=== PATIENT | female | born 1965 | race Hispanic/Latino ===

== ENCOUNTER 2020-03-30 15:12 | Inpatient (IN) | payer OTHER, SELFPAY ==
--- NOTE | 2020-03-30 15:42 | RAD ---
Exam:Left forearm 2 views HISTORY: Trauma. Fall. Pain. COMPARISON: None FINDINGS: Ulnar styloid fracture. Displaced and posteriorly angulated distal radius fracture with com minution and intra-articular extension. IMPRESSION: Distal radius and ulna fracture with deformity
--- NOTE | 2020-03-30 15:54 | CT ---
Exam: Head CT without contrast HISTORY: Level 2 trauma. Patient fell down 9 feet of stairs face first. Loss of consciousness. Memory loss. Nausea and vomiting. Right facial contusion. COMPARISON: none FINDINGS: Hemorrhage: No intraparenchymal hemorrhage or extra-axial hematoma. Brain parenchyma: Cortical mckeon-white matter differentiation is preserved. No mass effect or midline shift. Basilar cisterns are patent. Ventricular system: Ventricles and sulci are patent and symmetric. Calvarium: Intact. Sinuses and mastoid air cells: Opacification the right maxillary sinus with possible hemorrhage fluid level due to a right orbital floor fracture. Dedicated facial bone CT is recommended. There is a small amount of subcutaneous emphysema anterior to the right maxillary sinus. IMPRESSION: 1. No intracranial post traumatic sequelae 2. Probable right orbital floor fracture. Dedicated facial bone CT is recommended. Results study discussed with Danay Erazo 03/30/2020 3:51 PM Code CR
[2020-03-30 15:57] LABS: Hemoglobin 13.2 g/dL (12.0-16.0); Mean Corpuscular HGB CONC 31.3 g/dL (32.0-36.0); Mean Corpuscular Hemoglobin 28.3 pg (27.0-31.0); Mean Corpuscular Volume 90.3 fL (78.0-98.0); Mean Platelet Volume 6.6 fL (7.4-10.4); Platelet Count 322 thou/uL (130-400); RBC Distribution Width 12.4 % (11.5-14.5); Red Blood Cell (RBC) Count 4.68 mill/uL (4.20-5.40); White Blood Cell (WBC) Count 19.1 thou/uL (4.8-10.8)
[2020-03-30] MEDS ORDERED: Adacel (T-DAP) 0.5 ML SYRINGE ONE (16:01)
--- NOTE | 2020-03-30 16:04 | CT ---
Exam: CT cervical spine without contrast HISTORY: Trauma. Pain. COMPARISON: None FINDINGS: No craniocervical dissociation. Appropriate alignment of the lateral masses of C1 and C2. Intact odon toid process Appropriate alignment of the facets. Straightening of cervical lordosis may be due to patient position, muscle spasm or cervical collar. C urrent study does not assess for ligamentous injury. Soft tissue neck structures: No mass, lymphadenopathy or hematoma. No prevertebral soft tissue swelli ng. Upper mediastinum and lung apices: Unremarkable Central spinal canal: Neural foramina and central spinal canal are patent. Evaluation is limited by t echnique Vertebral bodies: Cervical spine vertebral body heights are maintained. There is no cervical spine ve rtebral body fracture. However, there is a fracture involving the right transverse process at C7. IMPRESSION: 1. No cervical spine vertebral body fracture. 2. Right C7 transverse process fracture.
--- NOTE | 2020-03-30 16:08 | CT ---
Exam: Maxillofacial CT without contrast HISTORY: Patient fell from a height of 9 feet. Loss of consciousness. Evaluate for fracture COMPARISON: None FINDINGS: Visualized brain parenchyma does not demonstrate posttraumatic change Bilateral ocular lenses are appropriately located. Both globes are intact. Retrobulbar fat is preserv ed. Symmetric attenuation the optic nerves and ocular rectus muscles Right lamina papyracea fracture with partial opacification of the right ethmoid air cells. There is a right orbital floor fracture. There is herniation of intraorbital fat through the defect. No obvious ocular rectus muscle herniation. Correlate clinically for entrapment. There is right periorbi tim hematoma. Hematoma extends anterior to the right maxillary sinus. Small focus of subcutaneous air is noted, anterior to the right maxillary sinus. Post traumatic opacification of the right maxill oliva sinus. No additional maxillofacial fractures. No nasal bone fractures Zygomatic arches are intact. Visualized aerodigestive tract is patent. No mucosal abnormality. Midline fatty raphae of the tongue is preserved IMPRESSION: 1. Right orbital floor fracture with herniation of intraorbital fat through the defect. Correlate for entrapment. 2. Right lamina papyracea fracture. 2. Post traumatic opacification of the right ethmoid air cells and right maxillary sinus. Results of the face CT and cervical spine CT relayed to Dr. Cortez 03/30/2020 4:06 PM Code CR Transcribed Date/Time: 03/30/2020 4:41 PM
[2020-03-30 16:11] LABS: Band 18 % (5-11); Lymphocytes 12 % (21-51); MDiff Complete? YES; Monocytes 5 % (0-10); Neutrophil 64 % (42-75); Platelet Morphology Comment Appears Adequate; RBC Morphology Normal
[2020-03-30 16:16] LABS: ALT (SGPT) 977 U/L (8-55); AST (SGOT) 1187 U/L (5-34); Albumin 3.9 g/dL (3.5-5.0); Alkaline Phosphatase 137 U/L (40-110); Anion Gap 20 mmol/L (10-20); BUN (Urea Nitrogen) 13 mg/dL (9.8-20.1); Bilirubin, Total 0.5 mg/dL (0.2-1.2); Calc. Creatinine Clearance 0 mL/min (70-130); Calcium 8.4 mg/dL (7.8-10.44); Carbon Dioxide 18 mmol/L (22-29); Chloride 105 mmol/L (98-107); Estimated GFR-MDRD 70; Glucose 111 mg/dL (70-105); Lipase 21 U/L (8-78); Potassium 3.5 mmol/L (3.5-5.1); Protein, Total 6.9 g/dL (6.0-8.3); Sodium 139 mmol/L (136-145)
--- NOTE | 2020-03-30 16:33 | CT ---
CT THORAX WITH CONTRAST CT ABDOMEN WITH CONTRAST CT PELVIS WITH CONTRAST CT THORACIC SPINE WITH CONTRAST CT LUMBAR SPINE WITH CONTRAST: (Trauma protocol) DATE: 03/30/2020 HISTORY: Trauma to the chest, abdomen, and pelvis in 54-year-old female Dr. Greco discussed the findings and recommendation by telephone with ER physician Dr. Steen at 4:14 P M 03/30/2020. TECHNIQUE: IV administration of iodinated contrast media. No oral contrast media. Single phase scans of thorax, abdomen, and pelvis. Sagittal reconstructions of thoracic and lumbar spine. FINDINGS: Lungs: No contusion. Pleura: No pneumothorax or hemothorax. Thoracic aorta: No dissection or rupture. Mediastinum: No hematoma. Abdomen and pelvis: Liver: Large, approximately 11 x 11 x 9.5 cm region of heterogeneously slightly low attenuation in th e upper portions of the right lobe of liver, mostly hepatic segments 7 and 8, with very irregular margins. Intrahepatic blood vessels, including portal vein branches, pass through this lesion, which would be unusual for neoplastic tumor. This could be a grade 4 liver laceration, but the absence of any other signs of injury elsewhere for such a large lesion, makes this slightly less likely. Gallbladder: Small calcified gallstone. Spleen: No laceration Pancreas: No surrounding fluid or fat stranding. Kidneys: No hydronephrosis or laceration. Bladder: No gross evidence of rupture. Abdominal aorta: No dissection or rupture. Small bowel: No dilation. Colon: No adjacent fat stranding. Free air: None. Free fluid: None. Skeleton: Ribs: No grossly displaced acute fracture. Sternum: No grossly displaced acute fracture. Thoracic spine: No acute compression fracture. Lumbar spine: No acute compression fracture. Pelvis: No grossly displaced acute fracture. No dislocation. IMPRESSION: 1. Large 11 x 11 x 9.5 cm low-attenuation lesion occupying large upper portion of right lobe of liver . Exact etiology uncertain. Possibilities include heterogeneous fatty infiltration of liver, or grade 4 liver laceration. The former is favored. Infiltrative neoplasm is less likely. Recommend foll ow-up with serum LFTs; and multi phase CT abdomen with and without contrast, liver mass protocol, on an elective basis a few days from now. 2. No other evidence of acute traumatic injury within the thorax, abdomen, or pelvis.
[2020-03-30] MEDS ORDERED: Ondansetron PF 4 MG/2 ML Vial ONE (16:35)
[2020-03-30 17:07] LABS: INR-International Normal Ratio 1.1; PTT 27.5 sec (22.9-36.1); Prothrombin Time 13.7 sec (12.0-14.7)
[2020-03-30] MEDS ORDERED: Fentanyl 100 MCG/2 ML VIAL ONE ×2 (17:23→18:29)
[2020-03-30] MEDS ORDERED: Dextrose 5% in Water 1,000 ML IV PRN (17:34)
[2020-03-30] MEDS ORDERED: Dextrose 50% Abboject 50 ML SYRINGE SLOW IVP PRN (17:34)
[2020-03-30] MEDS ORDERED: Ondansetron PF 4 MG/2 ML Vial IVP PRN (17:34)
[2020-03-30] MEDS ORDERED: hydrALAZINE 20 MG/ML VIAL SLOW IVP PRN (17:34)
[2020-03-30] MEDS ORDERED: traMADol HCl 50 MG TAB PO PRN (17:38)
[2020-03-30] MEDS ORDERED: Sodium Chloride 0.9% 1,000 ML IV SCH (17:45)
[2020-03-30 17:51] LABS: Acetaminophen Less than 6.0 mcg/mL (10.0-30.0); Alcohol Less than 10 mg/dL (Less than 10); Salicylate Less than 8.0 mg/dL (15.0-30.0)
[2020-03-30] MEDS ORDERED: Bupivacaine 0.5% 10 ML VIAL ONE (18:00)
[2020-03-30 18:22] LABS: Bacteria/HPF None Seen HPF (None Seen); Bilirubin Negative (Negative); Blood, Urine 1+ (Negative); Clarity Clear (Clear); Glucose, Urine (Dipstick) Normal (Negative); Leukocyte Negative Leu/uL (Negative); Nitrite Negative (Negative); Protein, Urine (Dipstick) 10 mg/dL (Neg-Trace); Squamous Epithelial 0-3 HPF (0-3); Urobilinogen Normal mg/dL (Less than 2)
[2020-03-30] MEDS ORDERED: Lidocaine 1% (PF) 30 ML VIAL ONE (18:26)
[2020-03-30 18:31] LABS: Amphetamine Not Detected (NotDetected); Barbiturates Screen Not Detected (NotDetected); Benzodiazepine Screen Not Detected (NotDetected); Cocaine Metabolite Screen Not Detected (NotDetected); Medtox Control Line Valid? VALID (VALID); Medtox Reader # READER 4; Methadone Not Detected (NotDetected); Methamphetamine Not Detected (NotDetected); Opiate Screen Not Detected (NotDetected); Oxycodone Screen Not Detected (NotDetected); Phencyclidine (PCP) Not Detected (NotDetected); THC/Cannabinoid Screen Not Detected (NotDetected); Tricyclic Screen Not Detected (NotDetected)
--- NOTE | 2020-03-30 19:12 | RAD ---
Radiograph left forearm 2 views: DATE: 03/30/2020 Time: 6:30 PM HISTORY: Status post reduction of distal radial fracture in 54-year-old female COMPARISON: 03/30/2020 2:57 PM FINDINGS: The comminuted fracture of the distal radial metaphysis and epiphysis, is still significantly displac ed. The major distal fragments appear to be slightly less displaced on the current lateral view, but that lateral view is obliqued, in a different direction from the previous one, and therefore true comparison is difficult. Again noted is the displaced fracture at base of ulnar styloid process. On the AP view, the radial side distal major fragments appear to be more displaced than before. Forea rm has been placed in splint. IMPRESSION: There continues to be significant displacement of comminuted, displaced, intra-articular distal radia l metaphyseal and epiphyseal fracture, after placement in splint.
--- NOTE | 2020-03-30 19:32 | HP ---
TRAUMA SURGEON: Dr. Arechiga. CONSULTING PHYSICIANS: 1. Dr. Roldan of [facility] [place]. 2. Dr. Kelley of Orthopedic Surgery. HISTORY OF PRESENT ILLNESS: The patient is a 54-year-old female, fell down a flight of steps. The patient reported hearing the fall and she was not responsive when they saw her. She was brought in by EMS and evaluated by the emergency room physician. The patient does not remember the fall. She complained of pain to her left wrist, her great toe on the right, and the side of her head on the right side. Gross motor and sensation are intact in all extremities. She denies bilateral upper and lower extremity tingling. GCS is 15. She denies feeling sick recently. REVIEW OF SYSTEMS: All additional 10-point review of systems negative except as indicated above. PAST MEDICAL HISTORY: Migraines, anxiety and depression. PAST SURGICAL HISTORY: Bunionectomy, appendectomy, and tubal ligation. SOCIAL HISTORY: The patient lives at home with her family. She denies tobacco, drug, or alcohol use. MEDICATIONS: 1. Sumatriptan. 2. Escitalopram. 3. Amitriptyline. 4. Hydroxyzine. 5. Cyclobenzaprine. 6. Prednisone, which the patient is no longer taking. 7. Naproxen. ALLERGIES: NO KNOWN DRUG ALLERGIES. PHYSICAL EXAMINATION: VITAL SIGNS: Temperature 99.0, pulse 76, respirations 18, oxygen saturation 94% on room air, blood pressure 104/63. PRIMARY SURVEY: Airway intact. Adequate breath sounds bilaterally. 2+ pulses in bilateral radials, femorals, and DPs. GCS 15. Gross motor and sensation are intact. SECONDARY SURVEY: HEAD: Normocephalic and atraumatic. No gross palpable skull deformities. ENT: The patient has abrasion with some swelling over the right eye. Pupils 3 to 2, equal, round, reactive to light bilaterally. No signs of entrapment. No blood in the bilateral nares. Dentition is intact. No blood in the oropharynx. No anterior neck crepitus/tenderness/injury. C-SPINE: No step-offs or deformities. Nontender. C-collar in place. CHEST: Nontender. No crepitus. No abrasions or ecchymosis. Equal chest movement. ABDOMEN: Soft, nontender, nondistended. PELVIS: Stable to palpation, nontender. No abrasions or ecchymosis. RECTAL: Deferred. GENITOURINARY: Deferred. EXTREMITIES: The patient has deformity of the left wrist. No abrasions or ecchymosis noted. 2+ pulses in bilateral radials, femorals, and DPs. BACK/SPINE: No step-offs, deformities, or tenderness to palpation of the thoracic or lumbar spine. No abrasions or ecchymosis noted. NEUROLOGIC: 5/5 strength in bilateral java project manager, plantar flexion, and dorsiflexion. Gross normal sensation x4 extremities. LABORATORY FINDINGS: White count 19.1, hemoglobin 13.2, hematocrit 42.3, platelets 322. INR 1.1. Sodium 143, potassium 3.7, chloride 105, bicarb 18, BUN 13, creatinine 0.85, glucose 111, lactic acid 6.0, total bilirubin 0.6, AST 1187, ALT 977, alkaline phosphatase 137, lipase 21, albumin 3.5. UA is negative for infection. Urine tox and plasma alcohol levels are all unremarkable. DIAGNOSTIC FINDINGS: CT scan of the brain demonstrates no intracranial posttraumatic sequela, probably right orbital floor fracture. Dedicated facial CT is recommended. CT scan of the C-spine demonstrates no cervical spine vertebral body fracture. Right C7 transverse process fracture. CT scan of the chest, abdomen, and pelvis demonstrates large 11 x 11 x 9.5 cm low-attenuation lesion occupying a large portion of the upper lobe of the liver, exact etiology uncertain, possibilities include heterogeneous fatty infiltrate of liver or grade 4 liver laceration. The former is favored. Infiltrative neoplasm is less likely. Recommended followup with serum LFTs and multiple-phase CT abdomen with and without contrast, liver mass protocol on an elective basis a few days from now. No evidence of acute traumatic injury in the thorax, abdomen, and pelvis. CT of the facial bones demonstrates right orbital floor fracture with herniation of intraorbital fat through the defect, correlate with entrapment, right lamina papyracea fracture, posttraumatic opacification of the right ethmoid air cells with the right maxillary sinus. ASSESSMENT: 1. Status post fall down staircase. 2. Left distal radius and ulnar fracture. 3. Right orbital floor fracture and lamina papyracea fracture. 4. C7 transverse process fracture. 5. Liver lesion, favoring fatty infiltrate, but possibly could be liver laceration. 6. History of anxiety, depression, and migraines. PLAN: The patient will be admitted to the Trauma Service. She will go to the regular surgical nursing floor. She will have a regular diet and be n.p.o. at midnight. The patient's lactic acid was elevated. She has received 1 L in the emergency department. However, we will give the patient another liter over the next 4 hours. She will be n.p.o. at midnight to go to the OR with Dr. Kelley for fixation of her left distal radius and ulnar fracture. Dr. Roldan of [facility] [place] has been consulted, who will evaluate the patient tomorrow and is not planning on surgery at this time. The patient can wear the collar for comfort. We will try to clear it tomorrow. Liver lesion was evaluated by Dr. Arechiga, who also called Radiology. They reported it is less likely to be a liver laceration. We will closely monitor her hemodynamics and repeat liver enzymes tomorrow. Today, we will complete troponin, EKG, magnesium, lactic acid, followup alcohol level, ammonia level, phosphorus level, and follow up those results. She will be n.p.o. at midnight for the OR tomorrow. This patient was discussed with Dr. Arechiga before this dictation. Job ID: [id number]
[2020-03-30 20:07] LABS: Magnesium 2.1 mg/dL (1.6-2.6); Phosphorus 3.4 mg/dL (2.3-4.7)
[2020-03-30 20:09] LABS: Lactic Acid 5.4 mmol/L (0.5-2.2)
[2020-03-30 22:33] VITALS: BMI 35.4
[2020-03-30] MEDS: traMADol HCl 50 MG TAB PO PRN (22:54)
[2020-03-30] MEDS: Gabapentin 100 MG CAP PO SCH (22:54)
[2020-03-30] MEDS: Senokot S 8.6-50 MG TAB PO SCH (23:05)
[2020-03-30] MEDS: Famotidine/PF 20 mg/2ml Vial SLOW IVP SCH (23:05)
[2020-03-31 01:13] LABS: HBSAg Index 0.23 S/CO (0-0.99); Hep A IgM AB Non-Reactive (NonReactive); Hep A IgM S/CO 0.19 S/CO (0-0.79); Hep B Surf Ag Non-Reactive S/CO (NonReactive); Hep C IgG Ab Non-Reactive (NonReactive); Hep C Index 0.15 S/CO (0-0.79)
[2020-03-31 01:14] LABS: HBCM Index 0.06 S/CO (0-0.79); Hepatitis B Core IgM Abs Non-Reactive (NonReactive)
--- NOTE | 2020-03-31 01:44 | PRG ---
DATE OF SERVICE: 03/30/2020 SUBJECTIVE: Ms. Motley remained in the surgical floor. Patient was seen on round this evening. Patient reports pain is controlled. She tolerated with her diet. Her urine is adequate. She developed no fever or shortness of breath. She reports no abdominal pain. OBJECTIVE: GENERAL: Currently, patient is lying in bed comfortable with no acute respiratory distress. VITAL SIGNS: Stable. LUNGS: Clear bilaterally. HEART: Regular rate and rhythm. ABDOMEN: Soft and nondistended. EXTREMITY: Neurovascularly intact x4. ASSESSMENT: 1. Status post mechanical fall. 2. Left distal radius and ulnar fracture. 3. Right orbital floor fracture and lamina papyracea fracture. 4. C7 transverse process fracture. 5. Liver lesion, most likely chronic. 6. History of anxiety and depression and migraine. PLAN: Continue supportive care. Continue pain control. Wear C-collar at all time. Patient will be admitted. No n.p.o. at midnight. Dr. Kellye will take the patient to the OR for left wrist fracture fixation tomorrow. Dr. Roldan will see patient tomorrow, and discussed treatment plan for facial fracture. Continue to follow up on liver lesion at the moment. Job ID: [id number] MTDD
[2020-03-31] MEDS: Morphine 2 MG/ML SYRINGE SLOW IVP PRN ×3 (02:43→18:01)
[2020-03-31 05:42] LABS: INR-International Normal Ratio 1.1; Prothrombin Time 13.9 sec (12.0-14.7)
[2020-03-31 05:59] LABS: Band 1 % (5-11); Eosinophils 1 % (0-10); Hemoglobin 11.1 g/dL (12.0-16.0); Lymphocytes 25 % (21-51); MDiff Complete? YES; Mean Corpuscular HGB CONC 32.2 g/dL (32.0-36.0); Mean Corpuscular Hemoglobin 29.1 pg (27.0-31.0); Mean Corpuscular Volume 90.6 fL (78.0-98.0); Mean Platelet Volume 6.7 fL (7.4-10.4); Monocytes 3 % (0-10); Neutrophil 70 % (42-75); Platelet Count 302 thou/uL (130-400); Platelet Morphology Comment Appears Adequate; RBC Distribution Width 12.5 % (11.5-14.5); RBC Morphology Normal; Red Blood Cell (RBC) Count 3.81 mill/uL (4.20-5.40); White Blood Cell (WBC) Count 10.5 thou/uL (4.8-10.8)
[2020-03-31 06:03] LABS: ALT (SGPT) 968 U/L (8-55); AST (SGOT) 1078 U/L (5-34); Albumin 3.4 g/dL (3.5-5.0); Alkaline Phosphatase 124 U/L (40-110); Anion Gap 12 mmol/L (10-20); BUN (Urea Nitrogen) 11 mg/dL (9.8-20.1); Bilirubin, Total 0.5 mg/dL (0.2-1.2); Calc. Creatinine Clearance 131 mL/min (70-130); Calcium 7.7 mg/dL (7.8-10.44); Carbon Dioxide 21 mmol/L (22-29); Chloride 108 mmol/L (98-107); Estimated GFR-MDRD 89; Globulin 2.6 g/dL (2.4-3.5); Glucose 113 mg/dL (70-105); Magnesium 1.9 mg/dL (1.6-2.6); Phosphorus 3.2 mg/dL (2.3-4.7); Potassium 3.8 mmol/L (3.5-5.1); Sodium 137 mmol/L (136-145)
[2020-03-31] MEDS ORDERED: Sodium Chloride 0.9% 1,000 ML IV SCH ×2 (06:45→07:37)
[2020-03-31] MEDS ORDERED: Magnesium 2 GM/50 ML 2 GM in Premix Bag 1 BAG IVPB SCH (07:45)
[2020-03-31] MEDS ORDERED: Potassium Phosphate 15 MMOL in Sodium Chloride 0.9% 250 ML 250 ML IVPB SCH (07:45)
[2020-03-31 08:02] LABS: Lactic Acid 2.3 mmol/L (0.5-2.2)
[2020-03-31 08:25] LABS: Troponin I 0.021 ng/mL (< 0.028)
[2020-03-31] MEDS: Famotidine/PF 20 mg/2ml Vial SLOW IVP SCH ×2 (08:31→20:12)
[2020-03-31] MEDS: Gabapentin 100 MG CAP PO SCH ×3 (08:31→20:12)
[2020-03-31] MEDS: Polyethylene Glycol 3350 17 GM Packet PO SCH (08:31)
[2020-03-31] MEDS: Senokot S 8.6-50 MG TAB PO SCH ×2 (08:32→20:12)
[2020-03-31] MEDS ORDERED: Escitalopram Oxalate 10 mg Tablet PO SCH (09:00)
[2020-03-31] MEDS ORDERED: Midazolam HCl 2 mg/2 ml Vial ONE (10:51)
[2020-03-31] MEDS ORDERED: PROPOFOL 200 MG/20 ML VIAL ONE (11:01)
[2020-03-31] MEDS ORDERED: Bupivacaine HCl 0.5%/Epinephrine 1:200,000/PF 30 ml Vial ONE ×2 (11:01→12:12)
[2020-03-31] MEDS ORDERED: Ketorolac Tromethamine 30 MG/ML VIAL ONE (11:01)
[2020-03-31] MEDS ORDERED: Propofol 500 MG/50 ML VIAL ONE (11:40)
--- NOTE | 2020-03-31 11:55 | PRG ---
DATE OF SERVICE: 03/31/2020 SUBJECTIVE: The patient was seen this morning during rounds. She was sitting up in bed with no signs of acute distress. She reported some mild lower back pain and left wrist pain. She has received fluid resuscitation overnight and her lactic acid is downtrending. She is pending the OR today with Dr. Kelley for fixation of her left radius and ulnar fracture. Dr. Roldan is also to evaluate her facial fracture. OBJECTIVE: VITAL SIGNS: Temperature 99.1, pulse 101, respirations 16, oxygen saturation 96% on room air, and blood pressure 96/65. GENERAL: Well-appearing middle-aged female, sitting up in bed with no signs of acute distress. PULMONARY: Equal chest rise and fall. Clear breath sounds bilaterally. No signs of acute respiratory distress. CARDIAC: Regular rate and rhythm. No murmurs, gallops, or rubs. GI: Abdomen is soft, nontender, nondistended. EXTREMITIES: 2+ pulses in all extremities. Gross motor and sensation are intact. She has a splint to her left upper extremity that is appropriate. NEUROLOGIC: GCS 15. C-collar in place and fitting appropriately. LABORATORY FINDINGS: White count 10.5, hemoglobin 11.1, hematocrit 34.5, and platelets 302. Sodium 137, potassium 3.8, chloride 108, bicarbonate 21, BUN 11, creatinine 0.69, glucose 113, lactic acid 2.3, phosphorus 3.2, magnesium 1.9, total bilirubin 0.5, AST 1078, ALT 968, alkaline phosphatase 124, and troponin 0.021. DIAGNOSTIC FINDINGS: There are no new diagnostic findings to report. ASSESSMENT: 1. Status post fall down a flight of stairs. 2. Concussion, resolving. 3. Right C7 transverse process fracture. 4. Right orbital floor fracture. 5. Left radius and ulnar fracture. 6. Fatty liver lesion, likely chronic. 7. History of anxiety and depression. PLAN: Continue n.p.o. Continue normal saline at 120 an hour. The patient to go to the OR with Dr. Kelley today, pending recommendations from Dr. Roldan about facial fractures. Postoperatively, we will assess her cervical spine in attempt to clear the collar. If we are able to clear the collar, she can have it p.r.n. If we are not able to clear the collar, I have already spoken with Dr. Schwarz's physician senior assistant manager who agreed to have her follow up in clinic if she has persistent C-spine tenderness. Postoperatively, the patient will work with Physical and Occupational Therapy, and she will likely be able to go home and not requiring any inpatient therapy. Job ID: [id number]
--- NOTE | 2020-03-31 13:26 | CON ---
DATE OF CONSULTATION: 03/31/2020 HISTORY OF PRESENT ILLNESS: Ms. Motley is a 54-year-old right-handed female who fell down some steps and had immediate pain and deformity in the left wrist, right great toe, and the right side of her head. The patient was brought to the emergency room. X-rays of the left wrist shows comminuted intra-articular fracture of the left distal radius with displacement and fracture of the ulnar styloid. There is a right orbital floor fracture and C7 transverse process fracture. There was a possible liver laceration. PAST MEDICAL HISTORY/MEDICAL ILLNESSES: 1. History of migraines. 2. Anxiety. 3. Depression. PAST SURGICAL HISTORY: 1. Bunionectomy. 2. Appendectomy. 3. Bilateral tubal ligation. CURRENT MEDICATIONS: 1. Sumatriptan. 2. Amitriptyline. 3. Hydroxyzine. 4. Cyclobenzaprine. 5. Prednisone. 6. Naprosyn. 7. Escitalopram. ALLERGIES: NONE. PHYSICAL EXAMINATION: On the left arm, the patient has swelling, early bruising, and severe tenderness in the left distal radius region. The patient has swelling in her hand, but is able to flex and extend her digits well. She does have some decreased sensation in the ulnar 2 digits, consistent with injury to the ulnar nerve. The skin is intact. She is nontender around the left elbow. IMPRESSION: Displaced intra-articular comminuted fracture of the left distal radius with fracture of the left ulnar styloid. PLAN: The patient will require open reduction and internal fixation of the left distal radius. Plan on placing a volar plate and screws, but potential risks with the condition of surgery include, but are not limited to infection, bleeding, pain, damage to blood vessels or nerves, nonunion, malunion, the patient may require additional surgery. The patient's questions were answered. Agreed to procedure. Job ID: [id number]
--- NOTE | 2020-03-31 13:29 | OP ---
DATE OF PROCEDURE: 03/31/2020 PREOPERATIVE DIAGNOSIS: Comminuted intra-articular fracture of the left distal radius. POSTOPERATIVE DIAGNOSIS: Comminuted intra-articular fracture of the left distal radius. PROCEDURE PERFORMED: Open reduction and internal fixation of comminuted intra-articular fracture of the left distal radius utilizing a volar plate and screws. ANESTHESIA: General. DESCRIPTION OF PROCEDURE: The patient was given preoperative IV antibiotics and taken to the operating room, placed in supine position. Satisfactory regional anesthesia was obtained. Left upper extremity was sterilely prepped and draped in the usual fashion. After exsanguination, tourniquet was raised to 250 mmHg. An additional 10 mL of 0.5% Marcaine with epinephrine was used around the volar aspect of the distal forearm. A longitudinal incision was made over the flexor carpi radialis tendon. Blunt dissection was made down to the tendon, was retracted ulnarly. The other soft tissue retracted radially. Periosteal elevation was performed on the distal volar aspect of the radius and a 2.4 LCP two-column volar distal radial plate from [employer] was placed over the volar aspect of the distal radius, initially internally fixed with a 2.7 cortical screw in the metaphysis and then 2.4 locking screws were placed in the distal aspect of the plate and the radius and also 2 additional 2.4 locking screws were placed in the shaft. This was all performed under fluoroscopic visualization. Final results showed the fractures were in good alignment and the plate and screws were in good position. The wound was then irrigated, closed using 0 Vicryl for the fat and subcutaneous tissue, and the skin was closed with 3-0 Rapide. Sterile dressing was applied. Additional 10 mL of 0.5% Marcaine with epinephrine was injected over and around the incision. The tourniquet was released. The patient was awakened, extubated, and transferred to recovery room in stable condition. ESTIMATED BLOOD LOSS: Minimal. COMPLICATIONS: None. TOURNIQUET TIME: 45 minutes. Job ID: [id number]
[2020-03-31] MEDS: hydrOXYzine 25 MG TAB PO PRN (14:37)
--- NOTE | 2020-03-31 17:50 | RAD ---
INTRAPROCEDURE FLUOROSCOPY: History: ORIF left wrist Exposure: 28.3 seconds, 0.59 mGy*cm^2 FINDINGS: Two intraprocedure fluoroscopic views demonstrate placement of a plate traversing the distal radius. Fracture fragments and lucency are identified. There is an ulnar styloid fracture. IMPRESSION: Distal radius fracture. Intraprocedure fluoroscopy. POS: PPP
[2020-03-31] MEDS ORDERED: CEFAZOLIN 2 GM in Premix Bag 1 BAG IVPB SCH (19:00)
--- NOTE | 2020-03-31 19:12 | RAD ---
RADIOGRAPH RIGHT FOOT 3VIEWS: DATE: 03/31/2020 HISTORY: 54-year-old female with acute traumatic mid foot pain after fall 9 feet FINDINGS: There is no dislocation. No fracture is identified. Flatfoot. No high-grade DJD. IMPRESSION: 1. No fracture. 2. Pes planus.
[2020-03-31] MEDS: traMADol HCl 50 MG TAB PO PRN (19:23)
[2020-03-31] MEDS: Cyclobenzaprine 10 MG TAB PO PRN (19:23)
[2020-03-31] MEDS ORDERED: Amitriptyline HCl 10 MG TAB PO SCH (21:00)
[2020-03-31] MEDS ORDERED: Gabapentin 100 MG CAP PO SCH (21:03)
--- NOTE | 2020-04-01 00:19 | PDOC.BPN ---
- Brief Progress Note DATE OF SERVICE: 03/31/2020 SUBJECTIVE: Ms. Motley remained in the surgical floor. Patient was seen on round this evening. Patient underwent L distal radius fracture today. Patient tolerate with procedure well. She tolerated with her diet. Her urine is adequate. She developed no fever or shortness of breath. Patient reported pain from lower back, pain has been chronic now elevated OBJECTIVE: GENERAL: Currently, patient is lying in bed comfortable with no acute respiratory distress. VITAL SIGNS: Stable. LUNGS: Clear bilaterally. HEART: Regular rate and rhythm. ABDOMEN: Soft and nondistended. EXTREMITY: Neurovascularly intact x4. SPINE: no step off ASSESSMENT: 1. Status post mechanical fall. 2. Left distal radius and ulnar fracture. 3. Right orbital floor fracture and lamina papyracea fracture. 4. C7 transverse process fracture. 5. Liver lesion, most likely chronic. 6. History of anxiety and depression and migraine. chronic back pain PLAN: Continue supportive care. Continue pain control, increase Gabapentin from 100 BID to [address] Roldan for facial fracture Liver lesion will be follow up as elective basic Will need to clear C collar, if not patient be assess by neurosurgery out patient basic
[2020-04-01] MEDS: hydrOXYzine 25 MG TAB PO PRN (00:41)
[2020-04-01] MEDS: Morphine 2 MG/ML SYRINGE SLOW IVP PRN ×3 (02:07→12:16)
[2020-04-01] MEDS: traMADol HCl 50 MG TAB PO PRN ×2 (02:08→08:20)
[2020-04-01 05:32] LABS: #Basophils 0.1 thou/uL (0.0-0.2); #Eosinphils 0.2 thou/uL (0.0-0.7); #Lymphocytes 1.7 thou/uL (1.20-3.40); #Monocytes 0.9 thou/uL (0.11-0.59); %Basophils 0.5 % (0.0-1.0); %Eosinophils 1.7 % (0.0-10.0); %Lymphocytes 12.9 % (21.0-51.0); %Monocytes 6.8 % (0.0-10.0); Hemoglobin 10.2 g/dL (12.0-16.0); Mean Corpuscular HGB CONC 32.1 g/dL (32.0-36.0); Mean Corpuscular Hemoglobin 28.9 pg (27.0-31.0); Mean Platelet Volume 6.5 fL (7.4-10.4); Platelet Count 253 thou/uL (130-400); RBC Distribution Width 12.5 % (11.5-14.5); Red Blood Cell (RBC) Count 3.54 mill/uL (4.20-5.40); White Blood Cell (WBC) Count 12.8 thou/uL (4.8-10.8)
[2020-04-01 05:56] LABS: ALT (SGPT) 983 U/L (8-55); AST (SGOT) 970 U/L (5-34); Albumin 3.4 g/dL (3.5-5.0); Alkaline Phosphatase 162 U/L (40-110); Anion Gap 8 mmol/L (10-20); BUN (Urea Nitrogen) 8 mg/dL (9.8-20.1); Bilirubin, Total 0.8 mg/dL (0.2-1.2); Calc. Creatinine Clearance 139 mL/min (70-130); Calcium 7.5 mg/dL (7.8-10.44); Carbon Dioxide 25 mmol/L (22-29); Chloride 105 mmol/L (98-107); Estimated GFR-MDRD Greater than 90; Globulin 2.8 g/dL (2.4-3.5); Glucose 121 mg/dL (70-105); Phosphorus 2.2 mg/dL (2.3-4.7); Potassium 3.7 mmol/L (3.5-5.1); Protein, Total 6.2 g/dL (6.0-8.3); Sodium 134 mmol/L (136-145)
[2020-04-01] MEDS: Famotidine/PF 20 mg/2ml Vial SLOW IVP SCH ×2 (08:20→20:21)
[2020-04-01] MEDS: Gabapentin 300 MG CAP PO SCH ×2 (08:20→20:21)
[2020-04-01] MEDS: Senokot S 8.6-50 MG TAB PO SCH ×2 (08:20→20:21)
[2020-04-01] MEDS: Polyethylene Glycol 3350 17 GM Packet PO SCH (08:20)
[2020-04-01] MEDS ORDERED: Escitalopram Oxalate 10 mg Tablet PO SCH (09:45)
[2020-04-01] MEDS: Cyclobenzaprine 10 MG TAB PO PRN (10:23)
[2020-04-01] MEDS ORDERED: traMADol HCl 50 MG TAB PO PRN (14:25)
[2020-04-01] MEDS ORDERED: Ibuprofen 200 MG TAB PO SCH (14:30)
[2020-04-01] MEDS: traMADol HCl 50 MG TAB PO SCH ×2 (15:01→20:22)
--- NOTE | 2020-04-01 16:04 | PRG ---
DATE OF SERVICE: 04/01/2020 This is Jayy Covington PA-C dictating a report for Gorge Wiggins DO. SUBJECTIVE: Ms. Motley is a 54-year-old female status post ORIF of a left radius ulnar fracture postop day #1. She is a victim of fall. She also noted to have transaminitis. Hepatitis is negative. She does have a large lesion in the liver, questionable whether this is traumatic or atraumatic. She has remained hemodynamically stable. Pain is moderately controlled. She is tolerating a diet, sitting up in bed, and working with PT at times. OBJECTIVE: VITAL SIGNS: From today, temperature is 98.9, blood pressure 126/80, heart rate is 97, respiratory rate is 20, saturating 93% on 2 L of oxygen nasal cannula. GENERAL: A 54-year-old obese female, sitting recumbent in bed, slight discomfort, but nontoxic appearing. HEENT: Normocephalic, atraumatic. Trachea is midline. No JVD is appreciated. RESPIRATORY: Equal rise and fall. No respiratory distress. CARDIOVASCULAR: Strong pulses. ABDOMEN: Soft. Pelvis is stable. EXTREMITIES: She has postsurgical changes noted in upper extremity, left radius ulna. Moves lower extremities well. NEURO: Alert, oriented to person, place, time and event. PSYCH: Normal mood and affect. LABORATORY DATA: From today, white blood cell count of 12.8, hemoglobin and hematocrit are 10.2 and 31.8 respectively, platelets are 253. Sodium is 134, potassium is 3.7, chloride is 105, CO2 is 25, creatinine is 0.65, chloride is 105, glucose is 121, calcium is 7.5, phosphorus is 2.2. AST and ALT are 970 and 983 respectively, alkaline phosphatase is 162, total bilirubin is 0.8. ASSESSMENT: 1. Status post fall down a flight of stairs. 2. Concussion. 3. Right C7 transverse process fracture and C-collar as needed. 4. Right orbital floor fracture, pending facial evaluation. 5. Left radius ulna fracture, status post repair by Orthopedics. 6. Fatty liver. 7. Large liver lesion, traumatic versus chronic known. 8. Mild transaminitis. 9. History of anxiety and depression. PLAN: 1. Continue pain control. 2. Stop all hepatotoxic medications. 3. Continue Ultram for now and watch liver function. 4. Resume NSAIDs. 5. We will need CT liver mass protocol. Follow up in 2 months in our clinic. 6. We are awaiting evaluation of face. Appreciate recommendations. 7. Continue all other supportive care. 8. Continue working PT, OT, hope to discharge in the next day or so. 9. Updated the patient and patient's family at the bedside and answered all questions. The patient was seen by Dr. Wiggins. This plan can be updated as needed. Job ID: [id number]
--- NOTE | 2020-04-01 18:25 | PRG ---
DATE OF SERVICE: 04/01/2020 Ms. Motley states that she feels that the dressing and wrist immobilizer on the left wrist is a little tight. She is currently lying in bed. The wrist immobilizer and the dressing were removed. The incision on the volar radial aspect of the left wrist is very clean. The left hand is neurovascularly intact. The patient will gradually increase her activity as tolerated. She needs to avoid any pushing, pulling, or lifting with the left hand. She will follow up in my office for the left wrist in 2 weeks. Job ID: [id number]
[2020-04-01] MEDS: Ibuprofen 200 MG TAB PO SCH (20:21)
[2020-04-01] MEDS ORDERED: Amitriptyline HCl 10 MG TAB PO SCH (21:00)
--- NOTE | 2020-04-02 01:10 | PDOC.BPN ---
- Brief Progress Note DATE OF SERVICE: 04/01/2020 SUBJECTIVE: Ms. Motley remained in the surgical floor. Patient was seen on round this evening. Her pain is better controlled She tolerated with her diet. Her urine is adequate. She developed no fever or shortness of breath. OBJECTIVE: GENERAL: Currently, patient is lying in bed comfortable with no acute respiratory distress. VITAL SIGNS: Stable. LUNGS: Clear bilaterally. HEART: Regular rate and rhythm. ABDOMEN: Soft and nondistended. EXTREMITY: Neurovascularly intact x4. SPINE: no step off ASSESSMENT: 1. Status post mechanical fall. 2. Left distal radius and ulnar fracture. 3. Right orbital floor fracture and lamina papyracea fracture. 4. C7 transverse process fracture. 5. Liver lesion, most likely chronic. 6. History of anxiety and depression and migraine. chronic back pain PLAN: Continue supportive care. Continue pain control, await for Dr. Roldan for facial fracture Liver lesion will be follow up as elective basic Will need to clear C collar, if not patient be assess by neurosurgery out patient basic
--- NOTE | 2020-04-02 02:01 | CON ---
DATE OF CONSULTATION: 04/01/2020 HISTORY OF PRESENT ILLNESS: A 54-year-old female, status post fall down a flight of stairs. She was brought to the emergency room by EMS, had no recollection of the fall, complained of her left wrist, toe, and side of her head hurting. CT of the face revealed a right orbital floor fracture for which Oral Surgery was consulted. PAST MEDICAL HISTORY: 1. Migraines. 2. Anxiety. 3. Depression. MEDICATIONS: 1. Sumatriptan. 2. Citalopram. 3. Amitriptyline. 4. Hydroxyzine. 5. Cyclobenzaprine. 6. Naproxen. ALLERGIES: NKDA. PAST SURGICAL HISTORY: 1. Bunionectomy. 2. Appendectomy. 3. Tubal ligation. SOCIAL HISTORY: Negative for tobacco, alcohol, or recreational drug use. PHYSICAL EXAMINATION: VITAL SIGNS: Stable. Afebrile. GENERAL: Patient lying in bed comfortably, in no acute distress. HEENT: Shows right-sided periorbital edema and ecchymosis. Initial tenderness to palpation. There is a right subconjunctival hemorrhage. Pupils are equally round, reactive to light bilaterally. The patient's visual acuity is grossly intact binocularly and monocularly. Extraocular movements intact. Ears within normal limits. Nose within normal limits. Intraoral exam within normal limits. DIAGNOSTIC FINDINGS: CT of the face reveals a displaced right orbital floor fracture, minimally displaced, limited for future fracture. ASSESSMENT: This is a 54-year-old female, status post fall with right orbital floor and lamina papyracea fracture. PLAN: No indication for surgical intervention at this time. Will follow up with the patient in clinic in 10 days to reassess after resolution of edema. Recommend sinus precautions and outpatient followup with Ophthalmology for an ocular exam. The patient can call [phone] for an appointment in our clinic for questions, concerns, or worrisome symptoms related to the face. Job ID: [id number]
[2020-04-02] MEDS: traMADol HCl 50 MG TAB PO SCH ×3 (02:11→14:07)
[2020-04-02 05:22] LABS: #Basophils 0.1 thou/uL (0.0-0.2); #Eosinphils 0.4 thou/uL (0.0-0.7); #Lymphocytes 2.5 thou/uL (1.20-3.40); #Monocytes 0.8 thou/uL (0.11-0.59); #Neutrophils 7.7 thou/uL (1.40-6.50); %Basophils 0.7 % (0.0-1.0); %Eosinophils 3.4 % (0.0-10.0); %Lymphocytes 21.8 % (21.0-51.0); %Neutrophils 67.1 % (42.0-75.0); Hemoglobin 10.1 g/dL (12.0-16.0); Mean Corpuscular HGB CONC 32.1 g/dL (32.0-36.0); Mean Corpuscular Hemoglobin 28.9 pg (27.0-31.0); Mean Corpuscular Volume 90.1 fL (78.0-98.0); Mean Platelet Volume 6.3 fL (7.4-10.4); Platelet Count 222 thou/uL (130-400); RBC Distribution Width 12.4 % (11.5-14.5); White Blood Cell (WBC) Count 11.5 thou/uL (4.8-10.8)
[2020-04-02 05:41] LABS: Anion Gap 10 mmol/L (10-20); BUN (Urea Nitrogen) 6 mg/dL (9.8-20.1); Calc. Creatinine Clearance 146 mL/min (70-130); Calcium 7.9 mg/dL (7.8-10.44); Carbon Dioxide 29 mmol/L (22-29); Chloride 105 mmol/L (98-107); Estimated GFR-MDRD Greater than 90; Glucose 97 mg/dL (70-105); Potassium 3.5 mmol/L (3.5-5.1); Sodium 140 mmol/L (136-145)
[2020-04-02] MEDS: Ibuprofen 200 MG TAB PO SCH ×2 (05:44→14:06)
[2020-04-02] MEDS ORDERED: Bacitracin 1 PK TOP PRN (07:05)
[2020-04-02] MEDS ORDERED: Escitalopram Oxalate 10 mg Tablet PO SCH (09:00)
[2020-04-02] MEDS: Polyethylene Glycol 3350 17 GM Packet PO SCH (09:45)
[2020-04-02] MEDS: Famotidine/PF 20 mg/2ml Vial SLOW IVP SCH (09:46)
[2020-04-02] MEDS: Senokot S 8.6-50 MG TAB PO SCH (09:46)
[2020-04-02] MEDS: Gabapentin 300 MG CAP PO SCH (09:47)
[2020-04-02 16:20] VITALS: BP 120/74; TEMP 98.9
--- NOTE | 2020-04-03 04:28 | DIS ---
DATE OF ADMISSION: 03/30/2020 DATE OF DISCHARGE: 04/02/2020 This is Jayy Covington PA-C dictating a report for Gorge Wiggins DO. DISCHARGE PHYSICIAN: Gorge Wiggins DO CONSULTING PHYSICIANS: 1. Camden Kelley MD. 2. Anup Roldan DDS, [facility]. HISTORY OF PRESENT ILLNESS: Ms. Motley presented with polytrauma, status post fall with orbital fracture as well as a lesion about her liver, left distal radius and ulna fracture, C7 transverse process fracture. She was admitted to the surgical connelly. HOSPITAL COURSE: The patient was taken to the OR by Dr. Kelley for ORIF of the left radius fracture. She tolerated this well. [facility] had seen the patient and they recommended followup in 2 weeks in their clinic. This followup has been placed in her chart. Neurosurgery saw the patient, C-collar as needed for pain for the C7 transverse process fracture. The patient also has a large liver lesion to determine whether it was traumatic versus chronic. Hemoglobin did remain stable. The patient remained hemodynamically stable. Her pain was controlled. Therefore, this will be followed with a CT liver mass protocol in 2 to 3 months. She will follow up in the Trauma Clinic. This was explained in great detail to the patient and the patient's at the bedside and they verbalized understanding of the same. The patient on the day of discharge is tolerating a diet, spontaneously voiding. Her pain was under control with oral pain medicines. PHYSICAL EXAMINATION: VITAL SIGNS: On the date of discharge, temperature is 98.0, blood pressure is 102/66. She is saturating 95% on room air. Heart rate of 88, breathing 16 times per minute. GENERAL: This is an obese 54-year-old female, mild discomfort, but nontoxic appearing. HEENT: Normocephalic, atraumatic. Trachea is midline. RESPIRATORY: Equal rise and fall. Bilateral breath sounds. Clear to auscultation bilaterally. CARDIOVASCULAR: Regular rate and rhythm. ABDOMEN: Obese, soft, nontender, specifically nontender in the right upper quadrant. No peritoneal signs. PELVIS: Stable. MUSCULOSKELETAL: She moves extremities well. She has a brace to the left upper extremity. She has good sensation distal to this. NEUROLOGIC: Alert and oriented to person, place, time and event. PSYCHIATRIC: Normal mood and affect. SKIN: Warm and dry. DIAGNOSTIC STUDIES: Diagnostic criteria: On the day of discharge, the patient's white blood cell count is 11.5, platelets are 222, hemoglobin and hematocrit is 10.2 and 31.5 respectively. Sodium is 140, potassium 3.5, chloride is 105, CO2 is 29, creatinine 0.62, glucose is 97. DISCHARGE PLAN: 1. The patient will be home. Follow up with [facility] in 10 days. 2. Follow up PCP as needed. 3. Follow up with Dr. Kelley in 2 weeks. 4. Follow up with Trauma Clinic in [address] We have given her a followup for May and placed this on the chart. DISCHARGE MEDICATIONS: 1. Resume home medications. 2. Add her gabapentin, ibuprofen, and tramadol and prescriptions were given. 3. Return precautions were given to the patient and the patient's at the bedside. They understand the same. Greater than 40 minutes was taken in discharge planning of this patient. Job ID: [id number]
--- NOTE | 2020-04-06 12:18 | EKG ---
Test Reason : Blood Pressure : / mmHG Vent. Rate : 085 BPM Atrial Rate : 085 BPM P-R Int : 146 ms QRS Dur : 084 ms QT Int : 366 ms P-R-T Axes : 048 -33 -27 degrees QTc Int : 435 ms Normal sinus rhythm Left axis deviation Low voltage QRS Abnormal ECG Confirmed by NIMCO ROCK DO ([id number]), editor at large ADRIENNE TURPIN ([id number] on 04/06/2020 12:17:51 PM Referred By: Confirmed By:NIMCO ROCK DO
== END 2020-04-02 17:10 | disposition home or self-care (01) | DRG 510 ==
LOC: ERS 15:12 → SURG A 17:37
PROVIDERS: ADMIT Surgery; ATTEND Surgery
PROC: 3E0234Z Introduction of Serum, Toxoid and Vaccine into Muscle, Percutaneous Approach (ICD-10-PCS; 2020-03-30)
PROC: 0PHJ04Z Insertion of Internal Fixation Device into Left Radius, Open Approach (ICD-10-PCS; principal; 2020-03-31)
PROC: BP1 Imaging, Non-Axial Upper Bones, Fluoroscopy (ICD-10-PCS; 2020-03-31)
DX: S52.572A Other intraarticular fracture of lower end of left radius, initial encounter for closed fracture (principal); S36.116A Major laceration of liver, initial encounter; S02.31XA Fracture of orbital floor, right side, initial encounter for closed fracture; S12.600A Unspecified displaced fracture of seventh cervical vertebra, initial encounter for closed fracture; S06.0X9A Concussion with loss of consciousness of unspecified duration, initial encounter; S02.81XA Fracture of other specified skull and facial bones, right side, initial encounter for closed fracture; S52.612A Displaced fracture of left ulna styloid process, initial encounter for closed fracture; F41.9 Anxiety disorder, unspecified; F32.9 Major depressive disorder, single episode, unspecified; G43.909 Migraine, unspecified, not intractable, without status migrainosus; G89.29 Other chronic pain; M54.9 Dorsalgia, unspecified; K76.0 Fatty (change of) liver, not elsewhere classified; R74.0 Nonspecific elevation of levels of transaminase and lactic acid dehydrogenase [LDH]; K76.89 Other specified diseases of liver; R40.2412 Glasgow coma scale score 13-15, at arrival to emergency department; W10.9XXA Fall (on) (from) unspecified stairs and steps, initial encounter; Z90.49 Acquired absence of other specified parts of digestive tract; Z98.51 Tubal ligation status; Z79.899 Other long term (current) drug therapy; Z79.1 Long term (current) use of non-steroidal anti-inflammatories (NSAID); Z23 Encounter for immunization; E66.9 Obesity, unspecified; Z68.35 Body mass index [BMI] 35.0-35.9, adult
CPT/HCPCS: 25605; 36415; 51701; 70450; 70486; 71260; 72125; 74177; 76000; 80048; 80053; 80074; 80306; 80307; 81003; 81015; 82140; 83605; 83690; 83735; 84100; 84484; 85007; 85025; 85027; 85610; 85730; 86850; 86900; 86901; 90471; 90715; 93005; 96361; 96365; 96375; 96376; C1713; G0390; J0670; J0690; J1885; J2001; J2250; J2270; J2405; J2704; J3010; J3475; J3490; J7050; S0028

== ENCOUNTER 2025-09-11 12:01 | Outpatient (CLI) | payer BC | END 2025-09-11 12:02 | disposition home or self-care (01) | LOC: ULT 12:01 | PROVIDERS: ATTEND Physician Assistant | DX: R79.89 Other specified abnormal findings of blood chemistry (principal) | CPT/HCPCS: 76536 ==